=== PATIENT | male | born 1960 | race Native Hawaiian/Other Pacific Islander ===

== ENCOUNTER 2020-03-08 08:19 | Outpatient (CLI) | payer OTHER ==
[~2020-03-08 08:19] MED LIST: DORZOLAMIDE2 % OPTH
== END 2020-03-08 23:25 | disposition home or self-care (01) ==
LOC: US 08:19
DX: D64.9 Anemia, unspecified (principal); N40.0 Benign prostatic hyperplasia without lower urinary tract symptoms; R68.82 Decreased libido; G62.9 Polyneuropathy, unspecified; G95.19 Other vascular myelopathies